=== PATIENT | male | born 2000 | race Caucasian/White ===

== ENCOUNTER 2023-12-12 22:25 | Emergency (ER) | payer OTHER ==
[2023-12-12] MEDS: Ondansetron 4 MG/2 ML SDV ONE (22:35)
[2023-12-12] MEDS: Ondansetron 4 MG/2 ML SDV IVPUSH ONE (22:35)
[2023-12-12] MEDS: Morphine 4 MG/ML Syringe ONE ×2 (22:35→22:45)
[2023-12-12] MEDS: Morphine 4 MG/ML Syringe IVPUSH ONE ×2 (22:35→22:39)
[2023-12-12] MEDS: Sodium Chloride 0.9% 10 ML Syringe FLUSH PRN (22:39)
[2023-12-12] MEDS: Sodium Chloride 0.9% 2.5 ML Syringe FLUSH PRN (22:39)
[2023-12-12 22:43] LABS: BASOPHILS ABSOLUTE AUTO 0.05 K/uL (0.00-0.20); BASOPHILS PERCENT AUTO 0.5 % (0.0-1.0); EOSINOPHILS ABSOLUTE AUTO 0.23 K/uL (0.00-0.45); EOSINOPHILS PERCENT AUTO 2.1 % (0.0-6.0); HEMATOCRIT 46.5 % (42.0-52.0); IMMATURE GRAN ABSOLUTE AUTO 0.03 K/uL (0.00-0.05); IMMATURE GRAN PERCENT AUTO 0.3 % (0.0-0.4); LYMPHOCYTES ABSOLUTE AUTO 3.67 K/uL (1.00-4.80); LYMPHOCYTES PERCENT AUTO 33.2 % (24.0-44.0); MEAN CORPUSCULAR HEMOGLOBIN 29.5 pg (28.0-32.0); MEAN CORPUSCULAR HGB CONC 34.4 g/dL (32.0-36.0); MEAN CORPUSCULAR VOLUME 85.6 fL (83.0-99.0); MEAN PLATELET VOLUME 9.6 fL (9.4-12.4); MONOCYTES ABSOLUTE AUTO 0.88 K/uL (0.00-0.80); MONOCYTES PERCENT AUTO 7.9 % (0.0-8.0); NEUTROPHILS ABSOLUTE AUTO 6.21 K/uL (1.80-7.70); PLATELET COUNT,PLT 274 K/uL (150-400); RED BLOOD CELL COUNT 5.43 M/uL (4.52-5.90); WHITE BLOOD CELL COUNT,WBC 11.07 K/uL (3.9-11.3)
[2023-12-12] MEDS: droPERidol 5 MG/2 ML SDV IVPUSH ONE (23:03)
[2023-12-12 23:08] LABS: A/G RATIO 1.1 (0.9-1.6); BILIRUBIN TOTAL 0.3 mg/dL (0.2-1.0); CARBON DIOXIDE,CO2 21.7 mmol/L (21.0-32.0); CREATININE 1.3 mg/dL (0.8-1.3); EST CRCL DRUG DOSING (CG) 110.35 mL/min; POTASSIUM,K 3.3 mmol/L (3.5-5.1); PROTEIN TOTAL,TP 7.5 g/dL (6.4-8.2)
[2023-12-12 23:10] LABS: PTT,PARTIAL THROMBOPLSTIN TIME 23.5 SEC (23.9-30.7)
[2023-12-12] MEDS: Iopamidol 755 MG/ML 500 ML Multipack Bottle IVPUSH ONE (23:12)
[2023-12-12] MEDS: cefTRIAXone 1 GM in Sodium Chloride 0.9% 50 ML IV ONE (23:19)
[2023-12-12] MEDS: Diphtheria,Pertussis(Acell),Tetanus Vaccine 0.5 ML Syringe IM ONE (23:19)
[2023-12-12] MEDS: metroNIDAZOLE/Normal Saline 500 MG in Premix Bag 1 BAG IV ONE (23:44)
[2023-12-13] MEDS: Dextrose 5%-0.45% NaCl 1,000 ML IV SCH (02:39)
[2023-12-13] MEDS: Morphine 4 MG/ML Syringe IVPUSH ONE ×3 (04:47→08:50)
== END 2023-12-13 09:17 ==
LOC: MW.ED 22:25
DX: S42.441 Displaced fracture (avulsion) of medial epicondyle of right humerus (principal); S80.212A Abrasion, left knee, initial encounter; S80.211A Abrasion, right knee, initial encounter; F10.120 Alcohol abuse with intoxication, uncomplicated; V89.2XXA Person injured in unspecified motor-vehicle accident, traffic, initial encounter; Y92.410 Unspecified street and highway as the place of occurrence of the external cause; Z75.8 Other problems related to medical facilities and other health care
CPT/HCPCS: 29105; 36415; 70450; 71260; 72125; 72128; 72131; 73080; 73562; 74177; 80053; 80307; 85025; 85610; 85730; 87635; 90471; 90715; 96365; 96367; 96375; 96376; 99285; J0696; J1790; J1836; J2270; J2405; J3490; J7799; Q9967; U0002

== ENCOUNTER 2024-12-05 23:07 | Emergency (ER) | payer SELFPAY ==
[2024-12-05 23:27] LABS: BASOPHILS ABSOLUTE AUTO 0.02 K/uL (0.00-0.20); BASOPHILS PERCENT AUTO 0.4 % (0.0-1.0); EOSINOPHILS ABSOLUTE AUTO 0.06 K/uL (0.00-0.45); EOSINOPHILS PERCENT AUTO 1.2 % (0.0-6.0); IMMATURE GRAN ABSOLUTE AUTO 0.00 K/uL (0.00-0.05); IMMATURE GRAN PERCENT AUTO 0.0 % (0.0-0.4); LYMPHOCYTES ABSOLUTE AUTO 1.68 K/uL (1.00-4.80); LYMPHOCYTES PERCENT AUTO 34.0 % (24.0-44.0); MEAN PLATELET VOLUME 9.7 fL (9.4-12.4); MONOCYTES ABSOLUTE AUTO 0.44 K/uL (0.00-0.80); MONOCYTES PERCENT AUTO 8.9 % (0.0-8.0); NEUTROPHILS ABSOLUTE AUTO 2.74 K/uL (1.80-7.70); NEUTROPHILS PERCENT AUTO 55.5 % (41.0-71.0); NRBC ABSOLUTE 0.00 K/uL (0.00-0.02); NRBC PERCENT 0.0 /100WBC (0.0-0.2); PLATELET COUNT,PLT 163 K/uL (150-400); RED BLOOD CELL COUNT 5.36 M/uL (4.52-5.90); WHITE BLOOD CELL COUNT,WBC 4.94 K/uL (3.9-11.3)
[2024-12-05] MEDS: Ketorolac 30 MG/ML SDV IVPUSH ONE (23:29)
[2024-12-05 23:54] LABS: BLOOD UREA NITROGEN,BUN 14.0 mg/dL (7.0-18.0); CARBON DIOXIDE,CO2 25.0 mmol/L (21.0-32.0); CHLORIDE,CL 101.0 mmol/L (98-107); CREATININE 1.1 mg/dL (0.8-1.3); EST CRCL DRUG DOSING (CG) 129.32 mL/min; GLUCOSE RANDOM 103.0 mg/dL (74-106); POTASSIUM,K 3.7 mmol/L (3.5-5.1); SODIUM,NA 137.0 mmol/L (136-148)
[2024-12-05 23:55] LABS: ESTIMATED GFR 97.0 mL/min (>60)
[2024-12-06] MEDS: Diphenhydramine/Lidocaine/MagAl/Simethicone 119 ML Bottle PO PRN (01:29)
[2024-12-06] MEDS: Lidocaine 2% Viscous Solution 15 ML UD PO ONE (01:33)
== END 2024-12-06 03:14 | disposition home or self-care (01) ==
LOC: MW.ED 23:07
DX: B00.2 Herpesviral gingivostomatitis and pharyngotonsillitis (principal); R07.89 Other chest pain
CPT/HCPCS: 36415; 71045; 80048; 84484; 85025; 85379; 93005; 96374; 99285; J1885; J3490; 93010; 99284; A9270-GY